=== PATIENT | female | born 1980 | race Caucasian/White ===

== ENCOUNTER → 2017-01-10 | Outpatient (CLI) | payer BC ==
[2017-01-10 12:07] LABS: Basophils % (A) 1 %; CH 30.9; Eosinophils # (A) 0.1 k/uL (0-0.7); Eosinophils % (A) 2 %; HCT 44.2 % (34.0-46.0); HDW 2.24; Luc # (Auto) 0.06; Luc % (Auto) 1; Lymphocytes # (A) 1.4 k/uL (1.0-4.8); Lymphocytes % (A) 21 %; MCH 30.9 pg (25.0-35.0); MCHC 33.9 g/dL (31.0-37.0); MCV 91.3 fL (80.0-100.0); Mean Platelet Volume 7.3; Monocytes # (A) 0.3 k/uL (0-1.0); Monocytes % (A) 4 %; Neutrophils # (A) 4.9 k/uL (1.3-7.7); Neutrophils % (A) 72 %; RBC 4.84 m/uL (3.80-5.40); RDW 13.5 % (11.5-15.5); WBC 6.8 k/uL (3.8-10.6); WBC (Perox) 6.63
== END | disposition home or self-care (01) ==
LOC: LABWHC1 11:39
PROVIDERS: ATTEND Obstetrics & Gynecology
DX: Z01.812 Encounter for preprocedural laboratory examination (principal)
CPT/HCPCS: 36415; 85025

== ENCOUNTER 2017-01-17 06:24 | Day surgery (SDC) | payer BC ==
[2017-01-10 10:21] VITALS: BMI 25.7
--- NOTE | 2017-01-12 18:20 | P.HPOB ---
History of Present Illness H&P Date: 01/12/17 Chief Complaint: Dysfunctional uterine bleeding. This patient is a pleasant 36-year-old 5 para 3 female who has had long- standing menorrhagia and dysfunctional uterine bleeding requesting NovaSure endometrial ablation. Patient states that her menstrual cycles are becoming heavier and longer. She sometimes bleeds for approximately 2 weeks and has episodes of flooding. It is interfering with her daily activities. Ultrasound shows the endometrium to be thickened at 20 mm but otherwise normal. Patient's partner has a vasectomy. Review of Systems Constitutional: Denies chills, Denies fever Ears, nose, mouth and throat: Denies headache, Denies sore throat Cardiovascular: Denies chest pain, Denies shortness of breath Respiratory: Denies cough Gastrointestinal: Denies abdominal pain, Denies diarrhea, Denies nausea, Denies vomiting Genitourinary: Reports as per HPI, Reports abnormal vaginal bleeding Menstruation: Reports as per HPI, Reports period heavy Musculoskeletal: Denies myalgias Integumentary: Denies pruritus, Denies rash Neurological: Denies numbness, Denies weakness Psychiatric: Denies anxiety, Denies depression Endocrine: Denies fatigue, Denies weight change Past Medical History Past Medical History: No Reported History Additional Past Medical History / Comment(s): abnormal vaginal bleeding History of Any Multi-Drug Resistant Organisms: None Reported Additional Past Surgical History / Comment(s): CTR-RT WRIST AGE 15, D&C; LEEP of the cervix 2013. Past Anesthesia/Blood Transfusion Reactions: Postoperative Nausea & Vomiting ( PONV) Past Psychological History: Anxiety (Patient is also had an eating disorder in the past.) Smoking Status: Never smoker Past Alcohol Use History: None Reported Past Drug Use History: None Reported - Past Family History Mother Family Medical History: No Reported History Medications and Allergies Home Medications Medication Instructions Recorded Confirmed Type Ibuprofen [Motrin] 200 mg PO Q6HR PRN 01/10/17 01/10/17 History Vitamin B Complex 1 each PO DAILY 01/10/17 01/10/17 History Allergies Allergy/AdvReac Type Severity Reaction Status Date / Time fluoxetine [From Prozac] Allergy black outs Verified 01/10/17 09:51 quetiapine [From Seroquel] Allergy black outs Verified 01/10/17 09:51 sulfanilamide [Sulfanilamide] AdvReac Itching Verified 01/10/17 09:51 Exam - OBG Physical Exam Abdomen: bowel sounds normal, no diffuse tenderness, no bruit present, no guarding noted, no hepatomegaly, no splenomegaly, no mass Vulva: both: normal Vagina: normal moisture, no discharge Cervix: no lesion, no discharge Uterus: normal size, normal contour Adnexa: both: normal Results Ultrasound shows endometrium to be thickened at 20 mm otherwise normal. Assessment and Plan (1) Dysfunctional uterine bleeding Narrative/Plan: This is a pleasant 36-year-old 5 para 3 female with long-standing dysfunctional uterine bleeding is requesting NovaSure endometrial ablation for treatment. Plan is hysteroscopy, D&C, and NovaSure endometrial ablation. Patient does understand the surgery and risks including risks of infection, bleeding, possible uterine perforation, and/or thermal injury. All the patient' s questions are answered and a written consent is obtained. Status: Chronic
[~2017-01-17 06:24] MED LIST: DEXAMETHASONE SOD PHOSPHATE 10 MG/ML 1 ML VIAL IV ONE; HYDROmorphone 1 MG/ML 1 ML SYRINGE IVP PRN; LACTATED RINGERS 1,000 ML IV SCH; LIDOCAINE 1% 20 ML VIAL (10MG/ML) FOR IV START INTRADERMA PRN; MIDAZOLAM 2 MG/2 ML VIAL IV PRN; ONDANSETRON 4 MG/2 ML VIAL IVP ONE; Pre Op ABX Message 1 EACH MISC MISCELLANE ONE; SCOPOLAMINE 1.5MG/72HR PATCH TRANSDERM ONE
[2017-01-17 06:51] VITALS: RESP 16
[2017-01-17] MEDS ORDERED: SCOPOLAMINE 1.5MG/72HR PATCH TRANSDERM SCH (07:15)
[2017-01-17] MEDS ORDERED: MIDAZOLAM 2 MG/2 ML VIAL ONE (07:24)
[2017-01-17] MEDS ORDERED: KETOROLAC 30 MG/ML 1 ML VIAL ONE (07:24)
[2017-01-17] MEDS ORDERED: LIDOCAINE 1% INJ 10MG/ML (20 ML MDV) ONE (07:24)
[2017-01-17] MEDS ORDERED: fentaNYL (PF) 50 MCG/ML 2 ML AMP ONE (07:24)
[2017-01-17] MEDS ORDERED: PROPOFOL 10 MG/ML 20 ML VIAL IV ONE (07:24)
--- NOTE | 2017-01-17 07:50 | P.OP ---
Date of Procedure: 01/17/17 Preoperative Diagnosis: Dysfunctional uterine bleeding Postoperative Diagnosis: Same Procedure(s) Performed: #1: Hysteroscopy. #2: Dilation and curettage. #3: NovaSure endometrial ablation Implants: Anesthesia: MAC Surgeon: Antonio Esparza Estimated Blood Loss (ml): 10 Urine output (ml): 10 Pathology: other (Uterine curettings) Condition: stable Disposition: PACU Indications for Procedure: Please see dictated H&P for intimate details of this patient's admission. Brief summary this is a pleasant 36-year-old multiparous patient who's had long- standing problem with menorrhagia and dysfunctional bleeding and requesting NovaSure endometrial ablation. Patient does understand the surgery and risks including risks of infection, bleeding, possible uterine perforation, and/or thermal injury. All the patient's questions are answered and a written consent is obtained. Operative Findings: This patient had normal-appearing endometrial cavity. Description of Procedure: This patient is taken to the operating room where she is laid in the supine position. She subsequently undergoes general mask anesthesia without incident. An adequate level of anesthesia she has a perineal vaginal prep and drape. Examination under anesthesia shows a mid position uterus of normal size. I drain the bladder for 10 mL of clear urine. A weighted speculum was placed in the posterior vagina. I gravid and Allis and attached to the anterior lip of the cervix. Uterus is gently sounded at this time to 8.5 cm. Gentle dilation is then done of the endocervix to allow the hysteroscope easily and uterine cavity. Using saline solution hysteroscopy is performed. Uterine cavity appears normal. The stomach dilate the cervix more to allow a small curette easily uterine cavity a gentle but vigorous curettage of all 4 quadrants is then done. This completed the NovaSure device is then opened appears to be intact. I set it at a length of 6.0 cm. Is then seated in place and opens up to a width of 3.5 cm. And then passes the cavity integrity test is then enabled. The power setting is 116 W for 72 seconds. NovaSure device is then removed and appears to be intact. Hysteroscopy is then performed again and the uterine cavity appears to be completely ablated up to the endocervix. With this done the procedure is terminated. All counts are correct 3. The Allis clamp and weighted speculum removed. There are no complications. Patient is awakened from anesthesia and taken the recovery room in satisfactory condition.
[2017-01-17 07:56] VITALS: TEMP 97.2
[2017-01-17 09:39] VITALS: BP 119/74; PULSE 52
== END 2017-01-17 09:53 | disposition home or self-care (01) ==
LOC: OR 06:24
PROVIDERS: ATTEND Obstetrics & Gynecology
DX: N87.9 Dysplasia of cervix uteri, unspecified (principal); N93.8 Other specified abnormal uterine and vaginal bleeding; N92.0 Excessive and frequent menstruation with regular cycle; Z88.2 Allergy status to sulfonamides; Z88.8 Allergy status to other drugs, medicaments and biological substances
CPT/HCPCS: 88305; 58563; J2250; J2001; J3010; J1885; J2704

== ENCOUNTER → 2018-04-18 | Outpatient (CLI) | payer BC ==
--- NOTE | 2018-04-18 09:47 | US ---
EXAMINATION TYPE: US abdomen complete DATE OF EXAM: 04/18/2018 COMPARISON: NONE CLINICAL HISTORY: R10.9 Abd pain. Nausea, pain EXAM MEASUREMENTS: Liver Length: 12.4 cm Gallbladder Wall: 0.2 cm CHD: 0.4 cm Spleen: 9.1 cm Right Kidney: 10.1 x 5.0 x 5.7 cm Left Kidney: 10.2 x 4.2 x 5.0 cm Pancreas: Slightly hypoechoic throughout without ductal dilatation. Liver: wnl Gallbladder: wnl Evidence for sonographic Carreno's sign: neg CBD: Obscured by overlying bowel gas CHD: wnl Spleen: wnl Right Kidney: wnl Left Kidney: wnl Upper IVC: wnl Abd Aorta: wnl The liver is homogenous. The intrahepatic portion of the IVC and proximal abdominal aorta are within normal limits. There is no evidence of cholelithiasis. Common bile duct is unremarkable. The sple en is unremarkable. Kidneys are symmetric and free of hydronephrosis. No renal lesions are seen. IMPRESSION: 1. No sonographic evidence of cholelithiasis or acute cholecystitis. 2. Slight decreased echogenicity of the intrahepatic parenchyma throughout without ductal dilatation. This could be artifactual or related to pancreatitis. Correlate with serum amylase and lipase.
--- NOTE | 2018-04-18 09:51 | US ---
EXAMINATION TYPE: US pelvic complete DATE OF EXAM: 04/18/2018 COMPARISON: 09/03/2009 CLINICAL HISTORY: Pelvis per order. Hx of ovarian cysts. Hx of ablation x 1 year ago, no menses TECHNIQUE: Transabdominal (TA). Transabdominal sonographic images of the pelvis were acquired. Date of LMP: 2016, EXAM MEASUREMENTS: Uterus: 7.7 x 4.7 x 4.3 cm Endometrial Stripe: 0.2 cm Right Ovary: 3.2 x 2.2 x 1.8 cm Left Ovary: 3.1 x 2.0 x 1.6 cm 1. Uterus: Anteverted Heterogenous. Hypoechoic mid lesion - 1.0 x 0.9 x 0.7 cm 2. Endometrium: wnl 3. Right Ovary: follicles seen 4. Left Ovary: follicles seen 5. Bilateral Adnexa: wnl 6. Posterior cul-de-sac: no free fluid IMPRESSION: 1. Physiologic follicular changes of the ovaries. No cystic adnexal masses. 2. Endometrial thickness is within normal limits post ablation. 3. Probable 1.0 cm mid body subserosal uterine leiomyoma.
== END | disposition home or self-care (01) ==
LOC: RADUSWWP 08:53
PROVIDERS: ATTEND Family Medicine
DX: R93.2 Abnormal findings on diagnostic imaging of liver and biliary tract (principal); R10.9 Unspecified abdominal pain; Z98.890 Other specified postprocedural states
CPT/HCPCS: 76700; 76856

== ENCOUNTER → 2018-06-26 | Outpatient (CLI) | payer BC ==
--- NOTE | 2018-06-26 15:35 | CT ---
EXAMINATION TYPE: CT iac w con DATE OF EXAM: 06/26/2018 COMPARISON: HISTORY: Dizziness, Lt sided hearing loss CT DLP: 272 mGycm Automated exposure control for dose reduction was used. CONTRAST: CT scan of the IACs is performed with IV Contrast, patient injected with 100 mL of Isovue 300. FINDINGS: The external auditory canals are patent bilaterally. Mastoid air cells show no evidence of abnormal opacification bilaterally. The middle ear ossicles are symmetric and unremarkable. There is no evidence of suspicious surrounding soft tissue density to suggest cholesteatoma. The scutum is preserved bilaterally. The cochlea and the semicircular canals are symmetric and unremarkable. Ves tibular aqueduct and internal carotid canal appear unremarkable. Temporomandibular joints are mainta ined bilaterally. There is a punctate focus of enhancement on series 5 image 54 measuring 2 mm at the left porus acusti cus superior margin. No additional areas of abnormal enhancement are seen. Visualized portions of the paranasal sinuses are well aerated. IMPRESSION: There is a punctate focus of enhancement at the left porus acusticus superior margin mareila t could relate to a small acoustic neuroma or abnormal enhancement of the 7th or 8th cranial nerve. A lternatively this could be vascular. MRI of the internal auditory canals could further assess this fi nding.
== END | disposition home or self-care (01) ==
LOC: RADCTMAIN 13:36
PROVIDERS: ATTEND Otolaryngology
DX: R93.89 Abnormal findings on diagnostic imaging of other specified body structures (principal); H91.92 Unspecified hearing loss, left ear; R42 Dizziness and giddiness
CPT/HCPCS: 70481; Q9967

== ENCOUNTER → 2018-07-10 | Outpatient (CLI) | payer BC ==
--- NOTE | 2018-07-10 10:16 | MR ---
EXAMINATION TYPE: MR iac wo/w con DATE OF EXAM: 07/10/2018 COMPARISON: 06/26/2018 CT IAC HISTORY: Tinnitus /left-sided hearing/ Abn CT TECHNIQUE: Multiplanar, multisequence images of the internal auditory canals is performed without and with IV co ntrast, utilizing 6.5 mL intravenous Gadavist . FINDINGS: Diffusion weighted images demonstrate no evidence of a recent infarct or other diffusion ab normality. There is no extra-axial fluid collection or significant white matter signal abnormality. The ventricular system and cisternal spaces are normal in size and appearance. The brain volume is age appropriate. Midline structures demonstrate normal morphology. There is leftward nasal septal deviation. Mild muco allie thickening in the ethmoid sinuses is seen. Remaining paranasal sinuses are well aerated. The cran iocervical junction appears within normal limits. The globes are intact. Although the previously seen punctate focus of enhancement on the prior CT of 06/26/2018 within the por us acusticus does relate to vasculature there is a very focal 2 mm linear area of enhancement of the 8th cranial nerve on coronal postcontrast nonfat sat T1 image 10. No focal mass is seen to suggest sc hwannoma. No cerebellar pontine angle mass is identified bilaterally. IMPRESSION: Punctate focus of linear enhancement within the inter canalicular portion of the 8th cran ial nerve relating to nonspecific neuritis. No focal mass to suggest schwannoma.
== END | disposition home or self-care (01) ==
LOC: RADMRIMAIN 09:06
PROVIDERS: ATTEND Otolaryngology
DX: H93.19 Tinnitus, unspecified ear (principal); H91.90 Unspecified hearing loss, unspecified ear
CPT/HCPCS: 70553; A9585

== ENCOUNTER → 2018-07-19 | Outpatient (CLI) | payer BC | END | disposition home or self-care (01) | LOC: NEUROMAIN 09:09 | PROVIDERS: ATTEND Otolaryngology | DX: R42 Dizziness and giddiness (principal) | CPT/HCPCS: 92537; 92540 ==

== ENCOUNTER 2020-11-04 17:02 | Inpatient (IN) | payer BC, MEDICAID, OTHER ==
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
[2020-11-04 18:25] LABS: Amphetamine Screen,Urine Not Detected (NotDetected); Barbiturate Screen,Urine Not Detected (NotDetected); Benzodiazepines Screen,Urine Not Detected (NotDetected); Cocaine Screen,Urine Not Detected (NotDetected); Methadone Screen, Urine Not Detected (NotDetected); Opiate Screen,Urine Not Detected (NotDetected); Oxycodone Screen, Urine Not Detected (NotDetected); Phencyclidine Screen,Urine Not Detected (NotDetected); Tricyclic Antidepressant,Urine Not Detected (NotDetected); Urn Cannabinoid Scrn Not Detected (NotDetected)
[2020-11-05] MEDS ORDERED: ACETAMINOPHEN TAB 500 MG TAB PO PRN (00:01)
[2020-11-05] MEDS ORDERED: MAGNESIUM HYDROXIDE 2,400 MG/10 ML CUP PO PRN (00:02)
[2020-11-05] MEDS ORDERED: LORazepam 1 MG TAB PO PRN (00:02)
[2020-11-05] MEDS ORDERED: MAG HYDROX/AL HYDROX/SIMETH 30 ML CUP PO PRN (00:02)
[2020-11-05] MEDS ORDERED: HALOPERIDOL LACTATE 5 MG/ML 1 ML VIAL IM PRN (00:03)
[2020-11-05] MEDS ORDERED: LORazepam 2 MG/ML INJ IM PRN (00:03)
[2020-11-05] MEDS ORDERED: haloperidoL 5 MG TAB PO PRN (00:03)
[2020-11-05] MEDS ORDERED: busPIRone HCl 10 MG TAB PO PRN (11:29)
[2020-11-05] MEDS: SERTRALINE 25 MG TAB PO SCH (11:56)
[2020-11-05] MEDS ORDERED: NICOTINE POLACRILEX 2 MG GUM BUCCAL PRN (12:00)
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
[2020-11-05] MEDS ORDERED: CITALOPRAM HYDROBROMIDE 10 MG TAB PO SCH (21:00)
[2020-11-05] MEDS: MELATONIN 3 MG TABLET PO SCH (23:41)
[2020-11-06] MEDS: SERTRALINE 25 MG TAB PO SCH (08:59)
--- NOTE | 2020-11-06 10:30 | P.PN ---
Progress Note - Text Progress Note Date: 11/06/20 Interval History: Patient was seen sitting in on group today and was directable and agreeable to speak with freelance copywriter in the office. Patient appeared to be calmer and states that her mood and anxiety been gradually improving. She states that she is trying to formalize a plan for when she is discharged. She states that she wants to live with her sister who she spoke to her yesterday of the phone. She states that she has to give her 60 days notice to get a loan to "buy me out" of the house that they are living in so that she can use that money to buy another house for her and her kids. She states that she was feeling dizzy this morning after taking the medications Zoloft and claims that she is also tired. She claims that she would like to have the medication dose to nighttime instead. She states that she was able to sleep throughout the night. At this time patient denies any suicidal or homical ideations, intent or plan. Patient denies any auditory, visual hallucinations and denies any paranoia or delusions. Patient has been compliant with meds. Mental Status Exam: General Appearance: Patient appears to be thin, stated age is alert, directable, and attempts to cooperate. Patient appears to have fair hygiene and grooming. Behavior: Patient is seated without any agitated behavior. Speech: Patient's speech is soft-spoken. Fluent. Mood/Affect: Patient reports their mood is improving mildly, affect is congruent and constricted. Suicidality/Homicidality: Patient denies having any homicidal ideation intent or plan. Denies any suicidal ideations intent or plan Perceptions: Patient denies any visual hallucinations and denies any auditory hallucinations Though content/process: There is no evidence of any delusional thought content and thought process is linear and goal-directed. More future oriented today Memory and concentration: AOX3, grossly intact for the purposes of this session. Judgment and insight: fair Assessment Depressive disorder unspecified PTSD Cannabis use disorder mild Nicotine dependence Plan: -Patient continues to meet criteria for inpatient psychiatric admission for symptom stabilization and safety. Patient has signed adult voluntary form and medication consent and was placed in patient's chart. -Medications: Will change Zoloft 25 mg to nighttime dosing due to effects of sedation. We'll give patient one dose of 12.5 mg daily at bedtime tonight as patient already took her morning dose of Zoloft. Can continue BuSpar 10 mg 3 times a day when necessary for anxiety, 20 mg daily at bedtime for sleep. -When necessary Ativan and Haldol for agitation/aggression. -NRT -Nicorette gum -SW on board for discharge planning. Encouraged the patient to participate in milieu. industrial relations worker to speak with patient's sister and likely prepare for discharge tomorrow.
[2020-11-06] MEDS ORDERED: SERTRALINE 25 MG TAB PO ONE (21:00)
[2020-11-06] MEDS: MELATONIN 3 MG TABLET PO SCH (21:59)
[2020-11-07 07:10] VITALS: BP 94/42; PULSE 58; RESP 17; TEMP 98
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
[2020-11-07] MEDS ORDERED: SERTRALINE 25 MG TAB PO SCH (21:00)
== END 2020-11-07 15:34 | disposition home or self-care (01) | DRG 885 ==
LOC: EC 17:02 → 3MHU 23:07
PROVIDERS: ADMIT Psychiatry & Neurology Psychiatry; ATTEND Psychiatry & Neurology Psychiatry
DX: F31.9 Bipolar disorder, unspecified (principal); R45.851 Suicidal ideations; F43.10 Post-traumatic stress disorder, unspecified; F12.10 Cannabis abuse, uncomplicated; F17.200 Nicotine dependence, unspecified, uncomplicated; F22 Delusional disorders; Z20.822 Contact with and (suspected) exposure to COVID-19
CPT/HCPCS: 80306; 81025; 82075; 87635; 99285

== ENCOUNTER 2022-01-28 16:01 | Emergency (ER) | payer OTHER ==
[2022-01-28 16:44] VITALS: BP 132/64; PULSE 56; RESP 20; TEMP 98.5
[2022-01-28] MEDS ORDERED: KETOROLAC 15 MG/ML 1 ML VIAL IM STA (17:46)
--- NOTE | 2022-01-28 18:05 | XR ---
EXAMINATION TYPE: XR chest 2V DATE OF EXAM: 01/28/2022 COMPARISON: NONE HISTORY: Cough TECHNIQUE: Frontal and lateral views of the chest are obtained. FINDINGS: There is mild perihilar hazy opacity. No significant pleural effusion, or pneumothorax see n. The cardiac silhouette size is within normal limits. The osseous structures are without acute a bnormality. S-shaped scoliosis seen. IMPRESSION: Mild perihilar opacity suggestive of atelectasis. Scoliosis.
--- NOTE | 2022-01-28 18:07 | XR ---
RESULT: HISTORY: neck pain TECHNIQUE: 2 views of the neck soft tissue COMPARISON: None. FINDINGS: The visualized neck soft tissues, airways and epiglottis are within normal limits. There is no acute fracture of the imaged osseous structures. There is moderate C6-7 spondylosis. No radiopaque foreign body. IMPRESSION: No acute radiographic abnormality.
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
== END 2022-01-28 19:25 | disposition home or self-care (01) ==
LOC: EC 16:01
DX: M54.2 Cervicalgia (principal); R13.10 Dysphagia, unspecified; F17.200 Nicotine dependence, unspecified, uncomplicated; Z88.6 Allergy status to analgesic agent; Z88.5 Allergy status to narcotic agent; Z88.8 Allergy status to other drugs, medicaments and biological substances; Z88.2 Allergy status to sulfonamides
CPT/HCPCS: 70360; 71046; 99284; 96372; J1885

== ENCOUNTER 2022-06-04 18:31 | Emergency (ER) | payer OTHER ==
[2022-06-04 18:52] VITALS: TEMP 98.2
[2022-06-04] MEDS ORDERED: SODIUM CHLORIDE 0.9% 1,000 ML IV STA ×2 (19:37→21:08)
[2022-06-04] MEDS ORDERED: ONDANSETRON 4 MG/2 ML VIAL IVP STA (19:37)
[2022-06-04] MEDS ORDERED: DEXAMETHASONE SOD PHOSPHATE 10 MG/ML 1 ML VIAL IV STA (19:37)
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
[2022-06-04 20:48] VITALS: RESP 16
[2022-06-04] MEDS ORDERED: KETOROLAC 15 MG/ML 1 ML VIAL IVP STA (21:08)
[2022-06-04 21:20] LABS: Basophils % (A) 1 %; Eosinophils # (A) 0.2 k/uL (0-0.7); Eosinophils % (A) 3 %; HCT 42.2 % (34.0-46.0); HGB 14.3 gm/dL (11.4-16.0); Lymphocytes # (A) 2.2 k/uL (1.0-4.8); Lymphocytes % (A) 29 %; MCH 30.8 pg (25.0-35.0); MCHC 33.9 g/dL (31.0-37.0); MCV 90.8 fL (80.0-100.0); Mean Platelet Volume 7.7; Monocytes # (A) 0.3 k/uL (0-1.0); Monocytes % (A) 4 %; Neutrophils # (A) 4.6 k/uL (1.3-7.7); Neutrophils % (A) 62 %; Platelet Count 294 k/uL (150-450); RBC 4.65 m/uL (3.80-5.40); WBC 7.4 k/uL (3.8-10.6)
[2022-06-04 21:30] LABS: Albumin 4.3 g/dL (3.5-5.0); Calcium 9.1 mg/dL (8.4-10.2); Total Bilirubin 0.7 mg/dL (0.2-1.3)
[2022-06-04 22:44] VITALS: BP 105/69; PULSE 61
== END 2022-06-04 23:35 | disposition home or self-care (01) ==
LOC: EC 18:31 → EEVIPCON 18:31 → EC 23:35
DX: G44.309 Post-traumatic headache, unspecified, not intractable (principal); R42 Dizziness and giddiness; F41.9 Anxiety disorder, unspecified; F31.9 Bipolar disorder, unspecified; F17.210 Nicotine dependence, cigarettes, uncomplicated; F12.90 Cannabis use, unspecified, uncomplicated; Z88.8 Allergy status to other drugs, medicaments and biological substances; Z88.5 Allergy status to narcotic agent; Z88.2 Allergy status to sulfonamides
CPT/HCPCS: 36415; 80053; 85025; 70486; 70450; 99284; 96374; 96375; 96361 ×2; J1100; J2405

== ENCOUNTER → 2023-08-08 | Outpatient (CLI) | payer OTHER ==
--- NOTE | 2023-08-08 08:28 | US ---
EXAMINATION TYPE: Ultrasound OB <= 14 weeks transvaginal DATE OF EXAM: 08/08/2023 7:31 AM COMPARISON: NONE CLINICAL INDICATION: Female, 42 years old with history of O36.80X0 W INCONCLUSIVE VIA BILITY,; Varying test results. Hx Ablation, HPV with tissue removal, A2 EXAM PERFORMED: Transvaginal (TV) and Transabdominal (TA) EXAM MEASUREMENTS: GESTATIONAL AGE / DATING Physician Established: Not yet established Dates by LMP: LMP unknown Dates by First Scan: No previous this is first scan ( weeks/ days) EDC: Dates by Current Scan for: No IUP seen at this time MATERNAL ANATOMY Uterus: 10.0 x 4.7 x 6.6 cm Right Ovary: 6.3 x 4.2 x 4.6 cm Left Ovary: 3.9 x 3.7 x 5.5 cm Post CDS / Adnexa: Trace fluid Presence of free fluid: No Presence of corpus luteal cyst: Possible Presence of subchorionic bleed: No GESTATION / SURVEY CRL: Not seen ( weeks/ days) MSD: Not seen ( weeks/ days) Yolk Sac (normal less than 6mm): 0.43 cm Heart Rate: Not seen bpm Rhythm: NA IUP: No IUP seen at this time Nuchal Translucency 10-14wks (normal less than 3mm): NA Age Appropriate Anatomy Cord Insertion: NA Limbs: NA Calvarium: NA Date of LMP: 8 years ago Beta HcG (if available): Not available Insemination Worker notes: ? Irregular fluid locule containing possible yolk sac within lower uterine segment, heterogenous endo metrium, thickened up to 2.0 cm - retained products of conception, and simple cysts on bilateral ovar ies, 5.6 cm on the right and 3.3 cm on the left. Echogenic area left ovary = 1.3 x 1.0 x 1.1 cm IMPRESSION: 1. 1. No visualized viable intrauterine . There is possible irregular fluid locule along the lo wer uterine segment possibly containing a yolk sac. The endometrium is heterogeneous and thickened up to 2.0 cm. Recommend serial beta hCG and ultrasound follow-up. in progress is a considerati on. Too early to visualize intrauterine and nonvisualized ectopic not excluded at this time. 2. A dominant follicle or functional cyst within either ovary measuring up to 5.6 cm. An additional 1 .3 cm echogenic focus in the left ovary is nonspecific and may represent a small ovarian dermoid.
== END | disposition home or self-care (01) ==
LOC: RADUSWWP 06:56
PROVIDERS: ATTEND Obstetrics & Gynecology
DX: O36.80X0 Pregnancy with inconclusive fetal viability, not applicable or unspecified (principal); Z3A.00 Weeks of gestation of pregnancy not specified
CPT/HCPCS: 76801; 76817

== ENCOUNTER 2023-08-18 20:01 | Emergency (ER) | payer OTHER ==
--- NOTE | 2023-08-18 20:15 | ED ---
General Adult HPI <Néstor Johnson - Last Filed: 08/18/23 20:18> <Andria Harris - Last Filed: 08/20/23 17:06> - General Stated complaint: Abnormal lab Time Seen by Provider: 08/18/23 20:14 - History of Present Illness Initial comments: Quicknote 42 year old female sent in by Jaskaran Diehl D.O. for possible ectopic . Had US on 08/08/23 that showed possible ectopic . Denies abdominal pain or vaginal bleeding. (Néstor Johnson) This is a 42-year-old female presenting with a methotrexate order due to ectopic . Patient had an ultrasound at our facility on 08/08. She followed up with Dr. Diehl at [facility] in [place]. He told her that her numbers were still "high", she does not know what her hCG was. She was told to come to the ER for methotrexate injection, and to follow-up with him in the office 1 week from now. Patient is having no bleeding or pain at this time. (Andria Harris) - Related Data Previous Rx's Medication Instructions Recorded Nicotine Gum (Polacrilex) 2 mg BUCCAL Q4HR PRN gum 11/07/20 [Nicorette] Sertraline [Zoloft] 25 mg PO HS #30 tab 11/07/20 busPIRone HCl [Buspar] 10 mg PO TID PRN #90 tab 11/07/20 Ibuprofen [Motrin] 600 mg PO Q6HR #28 tab 01/28/22 Allergies Allergy/AdvReac Type Severity Reaction Status Date / Time fluoxetine [From Prozac] Allergy black outs Verified 08/18/23 20:10 quetiapine [From Seroquel] Allergy black outs Verified 08/18/23 20:10 acetaminophen [From Vicodin] AdvReac Nausea & Verified 08/18/23 20:10 Vomiting hydrocodone [From Vicodin] AdvReac Nausea & Verified 08/18/23 20:10 Vomiting sulfanilamide [Sulfanilamide] AdvReac Itching Verified 08/18/23 20:10 Review of Systems ROS Other: All systems not noted in ROS Statement are negative. <Néstor Johnson - Last Filed: 08/18/23 20:18> ROS Other: All systems not noted in ROS Statement are negative. <Andria Harris - Last Filed: 08/20/23 17:06> ROS Statement: Those systems with pertinent positive or pertinent negative responses have been documented in the HPI. Past Medical History Past Medical History: No Reported History Additional Past Medical History / Comment(s): abnormal vaginal bleeding History of Any Multi-Drug Resistant Organisms: None Reported Past Surgical History: Orthopedic Surgery Additional Past Surgical History / Comment(s): CTR-RT WRIST AGE 15, D&C Past Anesthesia/Blood Transfusion Reactions: Postoperative Nausea & Vomiting (PONV) Past Psychological History: Anxiety, Bipolar Smoking Status: Current some day smoker, Light tobacco smoker Past Alcohol Use History: Occasional Past Drug Use History: Marijuana - Past Family History Mother Family Medical History: No Reported History <Néstor Johnson - Last Filed: 08/18/23 20:18> General Exam <Néstor Johnson - Last Filed: 08/18/23 20:18> Limitations: no limitations General appearance: alert, in no apparent distress Head exam: Present: atraumatic, normocephalic Eye exam: Present: normal appearance Neck exam: Present: normal inspection Respiratory exam: Absent: respiratory distress Cardiovascular Exam: Present: regular rate Extremities exam: Present: normal inspection Neurological exam: Present: alert, oriented X3 Psychiatric exam: Present: normal affect, normal mood Skin exam: Present: warm, dry <Andria Harris - Last Filed: 08/20/23 17:06> - General Exam Comments Initial Comments: Visual Physical Exam Vital signs reviewed General: Well-appearing, nontoxic, no acute distress. Head: Normocephalic, atraumatic Eyes: PERRLA, EOMI ENT: Airway patent Chest: Nonlabored breathing Skin: No visual rash, normal skin tone Neuro: Alert and oriented 3 Musculoskeletal: No gross abnormalities (Néstor Johnson) Course Vital Signs 08/18/23 08/18/23 08/19/23 20:11 23:17 00:34 Temperature 97.8 F 98.3 F Pulse Rate 61 60 51 L Respiratory 16 18 16 Rate Blood Pressure 108/70 104/56 104/73 O2 Sat by Pulse 98 99 97 Oximetry Medical Decision Making <Néstor Johnson - Last Filed: 02/29/24 20:18> - Lab Data Result diagrams: 08/18/23 20:40 08/18/23 20:40 <KimberlyKeenankaci - Last Filed: 08/20/23 17:06> - Medical Decision Making Quicknote portion performed. Signed Néstor Johnson PA-C (Néstor Johnson) Was pt. sent in by a medical professional or institution (, [facility], PROFESSOR OF LITERACY, urgent care, hospital, or fpc...) When possible be specific @ -Sent by Dr. Diehl Did you speak to anyone other than the patient for history (EMS, parent, family, police, friend...)? What history was obtained from this source @ -No Did you review nursing and triage notes (agree or disagree)? Why? @ -I reviewed and agree with nursing and triage notes Were old charts reviewed (outside hosp., previous admission, EMS record, old EKG, old radiological studies, urgent care reports/EKG's, fpc records)? Report findings @ -No old charts were reviewed Differential Diagnosis (chest pain, altered mental status, abdominal pain women, abdominal pain men, vaginal bleeding, weakness, fever, dyspnea, syncope, headache, dizziness, GI bleed, back pain, seizure, CVA, palpatations, mental health, musculoskeletal)? @ -Differential includes ectopic , cyst, abscess, this is not an all- inclusive list EKG interpreted by me (3pts min.). @ -As above X-rays interpreted by me (1pt min.). @ -None done CT interpreted by me (1pt min.). @ -None done U/S interpreted by me (1pt. min.). @ -Ultrasound shows no intrauterine gestational sac identified. Simple appearing large cyst is on the left ovary. No pole or cardiac activity is identified. Blighted ovum, ectopic , regular could be within the differential. Correlate with beta hCG and follow-up is recommended What testing was considered but not performed or refused? (CT, X-rays, U/S, labs)? Why? @ -Type and screen was considered, however lab has on file the patient is blood type O+ What meds were considered but not given or refused? Why? @ -None Did you discuss the management of the patient with other professionals (professionals i.e. Dr., PA, PROFESSOR OF LITERACY, lab, RT, psych nurse, social work manager, retail administrative assistant, teacher, air control/anti air warfare officer, disability case manager)? Give summary @ -No Was smoking cessation discussed for >3mins.? @ -No Was critical care preformed (if so, how long)? @ -No Were there social determinants of health that impacted care today? How? (Homelessness, low income, unemployed, alcoholism, drug addiction, transportation, low edu. Level, literacy, decrease access to med. care, care home, rehab)? @ -No Was there de-escalation of care discussed even if they declined (Discuss DNR or withdrawal of care, Hospice)? DNR status @ -No What co-morbidities impacted this encounter? (DM, HTN, Smoking, COPD, CAD, Cancer, CVA, ARF, Chemo, Hep., AIDS, mental health diagnosis, sleep apnea, morbid obesity)? @ -None Was patient admitted / discharged? Hospital course, mention meds given and route, prescriptions, significant lab abnormalities, going to OR and other pertinent info. @ -42-year-old female sent with prescription from Dr. Jaskaran Diehl for methotrexate injection for ectopic . Patient had ultrasound on 08/08 that showed possible ectopic . Dr. Jaskaran Diehl has been following the patient's hCG and told her that it is not decreasing properly. She is having no pain or bleeding. Lab work shows no leukocytosis or anemia. Urine shows no infectious process or bleeding. hCG is 16.2. Ultrasound showed no intrauterine gestational sac. Simple appearing large cyst on the left ovary and no pole or cardiac activity is identified. Blighted ovum, ectopic , regular could be within the differential. Methotrexate injection is administered by me. Patient has a lab order from Dr. Diehl for repeat hCG in 6 days and a follow-up appointment with him in 7 days. Educated on alarm symptoms that should prompt reevaluation and possible side effects of methotrexate. Discharged home. Follow-up with PCP. Report back to ER with any new or worsening symptoms. Discussed return parameters and answered all questions. Patient conveyed verbal understanding and agreed to the plan. I discussed this case in detail with my attending Dr. Luna Undiagnosed new problem with uncertain prognosis? @ -No Drug Therapy requiring intensive monitoring for toxicity (Heparin, Nitro, Insulin, Cardizem)? @ -No Were any procedures done? @ -No Diagnosis/symptom? @ -Ectopic Acute, or Chronic, or Acute on Chronic? @ -Acute Uncomplicated (without systemic symptoms) or Complicated (systemic symptoms)? @ -Uncomplicated Side effects of treatment? @ -No Exacerbation, Progression, or Severe Exacerbation? @ -No Poses a threat to life or bodily function? How? (Chest pain, [place], [place], pneumonia, PE, COPD, DKA, ARF, appy, cholecystitis, CVA, Diverticulitis, Homicidal, Suicidal, threat to staff... and all critical care pts) @ -Untreated ectopic is a threat, treatment administered and patient has close follow-up with Dr. Diehl ([facility]) - Lab Data Lab Results 08/18/23 08/18/23 08/18/23 Range/Units 20:40 20:40 23:30 WBC 7.4 (3.8-10.6) k/uL RBC 5.15 (3.80-5.40) m/uL Hgb 15.8 (11.4-16.0) gm/dL Hct 47.3 H (34.0-46.0) % MCV 91.8 (80.0-100.0) fL MCH 30.7 (25.0-35.0) pg MCHC 33.4 (31.0-37.0) g/dL RDW 12.6 (11.5-15.5) % Plt Count 372 (150-450) k/uL MPV 7.5 Neutrophils % 65 % Lymphocytes % 28 % Monocytes % 4 % Eosinophils % 2 % Basophils % 1 % Neutrophils # 4.8 (1.3-7.7) k/uL Lymphocytes # 2.0 (1.0-4.8) k/uL Monocytes # 0.3 (0-1.0) k/uL Eosinophils # 0.2 (0-0.7) k/uL Basophils # 0.0 (0-0.2) k/uL Sodium 139 (137-145) mmol/L Potassium 4.0 (3.5-5.1) mmol/L Chloride 107 (98-107) mmol/L Carbon Dioxide 25 (22-30) mmol/L Anion Gap 7 mmol/L BUN 9 (7-17) mg/dL Creatinine 0.68 (0.52-1.04) mg/dL Est GFR (CKD-EPI)AfAm >90 (>60 ml/min/1.73 sqM) Est GFR (CKD-EPI)NonAf >90 (>60 ml/min/1.73 sqM) Glucose 89 (74-99) mg/dL Calcium 9.6 (8.4-10.2) mg/dL Total Bilirubin 0.7 (0.2-1.3) mg/dL AST 40 H (14-36) U/L ALT 27 (4-34) U/L Alkaline Phosphatase 81 (38-126) U/L Total Protein 7.5 (6.3-8.2) g/dL Albumin 4.5 (3.5-5.0) g/dL HCG, Quant 16.2 mIU/mL Urine Color Light Yellow Urine Appearance Clear (Clear) Urine pH 6.0 (5.0-8.0) Ur Specific Douglass 1.022 (1.001-1.035) Urine Protein Negative (Negative) Urine Glucose (UA) Negative (Negative) Urine Ketones Negative (Negative) Urine Blood Negative (Negative) Urine Nitrite Negative (Negative) Urine Bilirubin Negative (Negative) Urine Urobilinogen <2.0 (<2.0) mg/dL Ur Leukocyte Esterase Negative (Negative) Disposition <Néstor Johnson - Last Filed: 08/18/23 20:18> Is patient prescribed a controlled substance at d/c from ED?: No Time of Disposition: 23:17 <Andria Harris - Last Filed: 08/20/23 17:06> Clinical Impression: Ectopic Disposition: HOME SELF-CARE Condition: Fair Instructions (If sedation given, give patient instructions): Methotrexate (By injection), Ectopic (DC) Additional Instructions: Follow-up with Dr. Diehl at your scheduled appointment next . Report back to ER with any new or worsening symptoms. Referrals: None,Stated [Primary Care Provider] - 1-2 days
[2023-08-18 20:58] LABS: Basophils % (A) 1 %; Eosinophils # (A) 0.2 k/uL (0-0.7); Eosinophils % (A) 2 %; HCT 47.3 % (34.0-46.0); HGB 15.8 gm/dL (11.4-16.0); Lymphocytes % (A) 28 %; MCH 30.7 pg (25.0-35.0); MCHC 33.4 g/dL (31.0-37.0); MCV 91.8 fL (80.0-100.0); Mean Platelet Volume 7.5; Monocytes # (A) 0.3 k/uL (0-1.0); Monocytes % (A) 4 %; Neutrophils # (A) 4.8 k/uL (1.3-7.7); Neutrophils % (A) 65 %; Platelet Count 372 k/uL (150-450); RBC 5.15 m/uL (3.80-5.40); RDW 12.6 % (11.5-15.5); WBC 7.4 k/uL (3.8-10.6)
[2023-08-18 21:08] LABS: ALT 27 U/L (4-34); AST 40 U/L (14-36); African American GFR (CKD) >90 (>60 ml/min/1.73 sqM); Albumin 4.5 g/dL (3.5-5.0); Alkaline Phosphatase 81 U/L (38-126); Anion Gap 7 mmol/L; Blood Urea Nitrogen 9 mg/dL (7-17); Calcium 9.6 mg/dL (8.4-10.2); Carbon Dioxide 25 mmol/L (22-30); Chloride 107 mmol/L (98-107); Glucose 89 mg/dL (74-99); Non-African American GFR(CKD) >90 (>60 ml/min/1.73 sqM); Sodium 139 mmol/L (137-145); Total Bilirubin 0.7 mg/dL (0.2-1.3); Total Protein 7.5 g/dL (6.3-8.2)
[2023-08-18 21:24] LABS: HCG,Quantitative Serum 16.2 mIU/mL
--- NOTE | 2023-08-18 21:49 | US ---
EXAMINATION TYPE: Transabdominal DATE OF EXAM: 08/18/2023 9:17 PM COMPARISON: NONE CLINICAL INDICATION: Female, 42 years old with history of poss ectopic ; Pt states she went to an outside facility and had a positive pg test, but doesn't remember exact hCG number. Hx of ablat ion. No pain, no bleeding EXAM PERFORMED: Transvaginal (TV) and Transabdominal (TA) EXAM MEASUREMENTS: GESTATIONAL AGE / DATING Physician Established: Not yet established Dates by LMP: LMP unknown Dates by First Scan: No IUP Dates by Current Scan for: No IUP seen MATERNAL ANATOMY Uterus: 8.0 x 5.5 x 4.7cm Right Ovary: 4.2 x 2.9 x 2.2cm Left Ovary: 4.1 x 3.8 x 4.4cm Post CDS / Adnexa: Free fluid seen in lt adnexa Presence of free fluid: Yes Presence of corpus luteal cyst: Multiple cysts seen Presence of subchorionic bleed: No GESTATION / SURVEY CRL: Not seen MSD: Not seen Yolk Sac (normal less than 6mm): Not seen IUP: No IUP seen at this time Date of LMP: LMP unknown, pt does not get periods since ablation Beta HcG (if available): 16 Endometrium is heterogeneous and measuring 1.2cm. Complex structure seen in cervix measuring 1.6 x 1. 6 x 1.0cm. Cysts seen in bilateral ovaries. Within the left ovary is measures 2.5 x 2.9 x 1.9 cm and appears simple. Smaller follicles are also present. No evidence for a gestational sac. IMPRESSION: 1. No intrauterine gestational sac identified. Simple appearing large cyst is on the left ovary. No f etal pole or cardiac activity is identified. Blighted ovum, ectopic , regularly co uld be within the differential. Correlate with beta hCG and follow-up is recommended.
[2023-08-18] MEDS: ONDANSETRON 4 MG ODT STARTER PACK 2 TAB BTL PO STA (23:25)
[2023-08-18 23:48] LABS: Appearance,Urine Clear (Clear); Bilirubin,Urine Negative (Negative); Blood,Urine Negative (Negative); Color,Urine Light Yellow; Glucose,Urine (UA) Negative (Negative); Ketones,Urine Negative (Negative); Leukocyte Esterase,Urine Negative (Negative); Nitrite,Urine Negative (Negative); Protein,Urine Negative (Negative); Specific Gravity,Urine 1.022 (1.001-1.035); Urobilinogen,Urine <2.0 mg/dL (<2.0)
[2023-08-19] MEDS: METHOTREXATE SODIUM (PF) 25 MG/ML 2 ML VIAL IM ONE (00:17)
[2023-08-19 01:14] VITALS: BP 104/73; PULSE 51; RESP 16; TEMP 98.3
== END 2023-08-19 00:36 | disposition home or self-care (01) ==
LOC: EC 20:01
DX: O02.0 Blighted ovum and nonhydatidiform mole (principal); O99.331 Smoking (tobacco) complicating pregnancy, first trimester; F12.90 Cannabis use, unspecified, uncomplicated; F17.200 Nicotine dependence, unspecified, uncomplicated; Z86.59 Personal history of other mental and behavioral disorders; Z88.5 Allergy status to narcotic agent; Z88.8 Allergy status to other drugs, medicaments and biological substances; Z88.2 Allergy status to sulfonamides; Z3A.01 Less than 8 weeks gestation of pregnancy
CPT/HCPCS: 99284 ×2; 96372 ×2; 36415; 80053; 85025; 81003; 84702; 76801; 76817; J9260; S0119